=== PATIENT | female | born 1950 | race Caucasian/White ===

== ENCOUNTER 2018-11-03 15:55 | Inpatient (IN) ==
[2018-11-03] MEDS ORDERED: 0.9 % SODIUM CHLORIDE 1,000 ML IV ONE (16:03)
[2018-11-03] MEDS ORDERED: DIPH,PERTUSS(ACELL),TET VAC/PF 0.5 ML SYRINGE IM ONE (16:05)
--- NOTE | 2018-11-03 16:08 | Emergency Department Note ---
Lower Extremity Injury HPI - General Chief Complaint: Extremity Injury, Lower Stated Complaint: poss open fracture Time Seen by Provider: 11/03/18 16:05 Source: EMS Mode of arrival: EMS Limitations: no limitations - History of Present Illness HPI Narrative: Patient states she fell in the kitchen at her home just prior to coming into the ED. She believes she tripped on some she has some swelling and tenderness and some deformity noted in the mid tib-fib region and there is a small open wound near the area. She states she is not allergic to any pain medications. She has normal sensation distally and good capillary refill.She rates the pain is a 1 0/10 she has no other signs or symptoms there was no head injury involved no loss of consciousness no neck pain. Denies any other pain in other locations.She states she last ate at 11:00 AM patient states she had about 3 glasses of wine a day and 3 to 4 glasses of wine yesterday - Related Data Home Medications Medication Instructions Recorded Confirmed albuterol sulfate HFA 90 90 mcg INHALATION ONCE PRN g 01/18/16 10/08/18 mcg/actuation aerosol inhaler budesonide-formoterol HFA 160 2 inh INHALATION QDAY g 01/18/16 10/08/18 mcg-4.5 mcg/actuation aerosol inhaler ibuprofen 200 mg tablet 200 mg PO QID PRN tab 01/18/16 10/08/18 tiotropium bromide 18 mcg capsule 1 cap INHALATION QDAY 01/18/16 10/08/18 with inhalation device folic acid 800 mcg tablet 800 mcg PO QDAY 06/28/17 10/08/18 Methocarbamol [Robaxin] 500 mg PO DAILY 04/05/18 10/08/18 Previous Rx's Medication Instructions Recorded atorvastatin 80 mg tablet 80 mg PO QDAY #90 tab 01/20/16 spironolactone 25 mg tablet 12.5 mg PO QDAY #30 tab 04/04/18 trazodone 100 mg tablet 100 mg PO QHS PRN #90 tab 04/10/18 levothyroxine 50 mcg capsule 50 mcg PO QDAY #90 cap 06/24/18 furosemide 20 mg tablet 20 mg PO QDAY PRN #90 tab 09/11/18 Allergies Allergy/AdvReac Type Severity Reaction Status Date / Time Penicillins Allergy Unknown Unknown Verified 11/03/18 15:59 Sulfa (Sulfonamide Allergy Unknown Unknown Verified 11/03/18 15:59 Antibiotics) Review of Systems All systems ED: reviewed and negative except as stated. Musculoskeletal: Reports: as per HPI, other (Pain in the lower left leg some deformity and open laceration) Past Medical History - Past Medical History [facility] Narrative: All Active Problems (Last Reviewed 10/08/18 @ 14:17 by Bonny Clark DO) Papanicolaou smear (Chronic) Rotator cuff (capsule) sprain (Acute) Anemia (Chronic) Edema (Acute) Elevated liver enzymes (Acute) Hip pain, bilateral (Chronic) Shoulder pain, right (Acute) Low grade squamous intraepith lesion on cytologic smear cervix (lgsil) (Acute) Chronic obstructive bronchitis (Chronic) Back pain (Chronic) Thyroid disease (Chronic) Osteoporosis (Chronic) Joint pain (Chronic) Insomnia (Chronic) Hyperlipidemia (Chronic) Muscle pain (Chronic) Asthma (Chronic) Arthritis (Chronic) Acid reflux (Chronic) Past Surgical History (Last Updated 10/08/18 @ 14:27 by Bonny Clark DO) H/O colonoscopy (Chronic) History of cataract surgery (Chronic) Family History (Last Reviewed 10/08/18 @ 14:17 by Bonny Clark DO) Mother Colon cancer Medical history: Reports: non-contributory [employer] history: Reports: non-contributory Surgical history ED: Reports: non-contributory - Social History smoking status: Former smoker Alcohol use: Reports: Daily (She states she 3 drinks between 3 to 4 glasses of wine a day) Drug use: Reports: none Physical Exam Limitations: no limitations General appearance: alert Head: atraumatic, normocephalic Eye: Present: normal appearance, PERRL ENT: normal exam, normal oropharynx, mucous membranes moist Neck: Present: normal inspection, full ROM, trachea midline Chest: Present: normal inspection, symmetric chest wall rise. Absent: tenderness Respiratory: Present: normal lung sounds bilaterally. Absent: respiratory distress, rales/crackles, wheezes Cardiovascular: Present: regular rate, normal rhythm. Absent: bradycardia Abdominal: Present: soft Hip/Pelvis: Present: normal inspection, full ROM. Absent: tenderness Upper leg: Present: normal inspection, full ROM. Absent: tenderness Knee: Present: normal inspection, full ROM. Absent: tenderness Lower leg: Present: tenderness, laceration, deformity Ankle: Present: normal inspection, full ROM. Absent: tenderness Foot/toe: Present: normal inspection, full ROM. Absent: tenderness Neurovascular/Tendon: Present: normal capillary refill, pulse deficit. Absent: motor deficit, sensory deficit, tendon deficit Course Vital Signs Pulse Rate 89 11/03/18 16:09 Respiratory Rate 12 11/03/18 16:09 Blood Pressure 150/63 11/03/18 16:09 Pulse Oximetry (%) 98 11/03/18 16:09 Pulse Rate 98 H 11/03/18 17:03 Respiratory Rate 13 11/03/18 17:03 Blood Pressure 120/68 11/03/18 17:02 Pulse Oximetry (%) 94 11/03/18 17:02 Extremity Injury, Lower - MDM Narrative Medical decision making narrative: X-ray does reveal spiral fracture of the tibia fracture of the medial malleolus fracture of the proximal fibula area Dr. Mathur contacted patient be admitted started on 2 g of Ancef and a CT of the ankle. Patient states she does not know what allergies she had to penicillin as it was in childhood but she states she has had cephalosporins in the past without reaction. Dr. Mathur here to evaluate patient patient will be taken to surgery for her open fracture and he is in contact with Dr. Moore. Dr. Mathur and Dr. Pink have been notified that the patient has had alcohol on board. - Lab Data Result diagrams: 11/03/18 16:33 11/03/18 16:33 Disposition Pt seen by CLINICAL SAFETY MANAGER/PA only: No Clinical Impression: Tibia/fibula fracture Qualifiers: Encounter type: initial encounter Fracture type: open Laterality: left Fracture of ankle, medial malleolus, left, closed Qualifiers: Encounter type: initial encounter Fracture alignment: nondisplaced Qualified Code(s): S82.55XA - Nondisplaced fracture of medial malleolus of left tibia, initial encounter for closed fracture Disposition: Xfer As Inpt ([facility]) Condition: Fair Referrals: Bonny Clark DO [Primary Care Provider] -
[2018-11-03] MEDS: HYDROmorphone 2 MG/ML VIAL IV PRN ×2 (16:09→16:45)
[2018-11-03] MEDS ORDERED: ceFAZolin 2 GM in DEXTROSE 5% IN WATER 50 ML IV SCH ×2 (16:45→22:52)
[2018-11-03 17:39] LABS: Basophils # (Auto) 0.1 K/mcL (0.0-0.3); Eosinophils # (Auto) 0 K/mcL (0.0-0.7); Eosinophils % (Auto) 0.6 % (0.0-7.0); Granulocytes % (Auto) 65.9 % (38.0-78.0); Hematocrit 26.6 % (36.0-48.0); Hemoglobin 8.1 g/dL (12.0-15.0); Lymphocytes # (Auto) 1.9 K/mcL (1.5-4.8); Lymphocytes % (Auto) 24.3 % (15.5-49.0); Mean Corpuscular HGB Conc 30.5 g/dL (31.0-36.0); Mean Platelet Volume 7.7 fL (7.4-10.4); Monocytes # (Auto) 0.6 K/mcL (0.1-0.9); Monocytes % (Auto) 8.2 % (1.0-12.0); Platelet Count 491 K/mcL (140-440); RBC 3.25 M/mcL (4.00-5.20); Red Cell Distribution Width 18.7 % (11.5-14.5); WBC 7.7 K/mcL (4.5-11.0)
[2018-11-03] MEDS ORDERED: ONDANSETRON 4 MG/2 ML VIAL IV ONE ×2 (17:44→19:00)
[2018-11-03 17:46] LABS: Alcohol,Blood 0.103 gm/dl (<0.010)
[2018-11-03 17:51] LABS: ALT/SGPT 29 U/l (0-40); AST/SGOT 38 U/l (0-37); Albumin 3.7 gm/dL (3.2-5.2); Alkaline Phosphatase 227 U/L (39-117); Bilirubin,Total 0.2 mg/dL (0.0-1.0); Blood Urea Nitrogen 7 mg/dl (8-23); Calcium 8.6 mg/dl (8.6-10.4); Carbon Dioxide 23 mmol/L (22-30); Chloride 96 mmol/L (96-108); Globulin 3.7 gm/dL (2.2-3.7); Glomerular Filtration Rate 94; Glucose 106 mg/dL (70-105)
[2018-11-03] MEDS ORDERED: IPRATROPIUM/ALBUTEROL 3 ML AMPUL.NEB NEB ONE ×2 (18:13)
[2018-11-03] MEDS ORDERED: ONDANSETRON 4 MG/2 ML VIAL ONE ×2 (18:29→23:00)
--- NOTE | 2018-11-03 18:32 | Internal Med History&Physical ---
Medical - H&P: [facility] Patient information: Note initiated : 11/03/18 at 6:30 pm Service Date, if different from initiated Date: [] Patient: Bert Villar a 67 y/o F admitted on for poss open fracture. Chief Complaint: [] History of present illness: Ms. Villar is a 67 year old F with history of COPD on home oxygen 3 L, heavy alcoholic presents to the emergency room after a fall and pain in the left leg. The patient drinks since morning, I believe she is had 5 drinks so far lasting at 2 PM. A bit later she notes that she fell down mechanical fall lost strength in her body became a bit dizzy and fell down she is unable to characterize the exact mechanism of the fall or on when she fell but when she tried to get up her left leg was hurting very badly. Severe pain nonradiating, worse with activity better with rest and some pain meds. The patient denies any chest pain shortness of breath cough denies any headache changes in vision difficulty in swallowing no nausea vomiting diarrhea no urinary complaints besides the pain noted she denies any pain anywhere else. Denies any head injury. Patient has an open wound in the left lower extremity, x-ray shows a distal tibia fracture, she also has a proximal fibula fracture. The patient has been evaluated by orthopedics and will be taken today to the OR. Patient is being admitted to the medical service given the fact that she is a chronic alcoholic high risk of withdrawal, is on chronic oxygen therapy from her COPD. All systems: reviewed and no additional remarkable complaints except as stated (As per HPI rest negative) Medical - H&P: PMH Medical history: Medical History (Last Reviewed 10/08/18 @ 14:17 by Bonny Clark DO) Rotator cuff (capsule) sprain (Acute) Anemia (Chronic) Edema (Acute) Elevated liver enzymes (Acute) Hip pain, bilateral (Chronic) Shoulder pain, right (Acute) Low grade squamous intraepith lesion on cytologic smear cervix (lgsil) (Acute) Back pain (Chronic) Thyroid disease (Chronic) Osteoporosis (Chronic) Joint pain (Chronic) Insomnia (Chronic) Hyperlipidemia (Chronic) Muscle pain (Chronic) Asthma (Chronic) Arthritis (Chronic) Acid reflux (Chronic) Surgical history: Past Surgical History (Last Updated 10/08/18 @ 14:27 by Bonny Clark DO) H/O colonoscopy (Chronic) History of cataract surgery (Chronic) Pertinent family history: Family History (Last Reviewed 10/08/18 @ 14:17 by Bonny Clark DO) Mother Colon cancer Medical - H&P: Meds Home Medications Medication Instructions Recorded Confirmed Type albuterol sulfate HFA 90 90 mcg INHALATION ONCE PRN g 01/18/16 10/08/18 History mcg/actuation aerosol inhaler budesonide-formoterol HFA 160 2 inh INHALATION QDAY g 01/18/16 10/08/18 History mcg-4.5 mcg/actuation aerosol inhaler ibuprofen 200 mg tablet 200 mg PO QID PRN tab 01/18/16 10/08/18 History tiotropium bromide 18 mcg capsule 1 cap INHALATION QDAY 01/18/16 10/08/18 History with inhalation device atorvastatin 80 mg tablet 80 mg PO QDAY #90 tab 01/20/16 10/08/18 Rx folic acid 800 mcg tablet 800 mcg PO QDAY 06/28/17 10/08/18 History spironolactone 25 mg tablet 12.5 mg PO QDAY #30 tab 04/04/18 10/08/18 Rx Methocarbamol [Robaxin] 500 mg PO DAILY 04/05/18 10/08/18 History trazodone 100 mg tablet 100 mg PO QHS PRN #90 tab 04/10/18 10/08/18 Rx levothyroxine 50 mcg capsule 50 mcg PO QDAY #90 cap 06/24/18 10/08/18 Rx furosemide 20 mg tablet 20 mg PO QDAY PRN #90 tab 09/11/18 10/08/18 Rx Allergies Allergy/AdvReac Type Severity Reaction Status Date / Time Penicillins Allergy Unknown Unknown Verified 11/03/18 15:59 Sulfa (Sulfonamide Allergy Unknown Unknown Verified 11/03/18 15:59 Antibiotics) Medical - H&P: Exam - Constitutional Vitals: Pulse Resp BP Pulse Ox 95 H 13 120/68 98 11/03/18 17:12 11/03/18 17:12 11/03/18 17:02 11/03/18 17:12 General appearance: moderate distress Exam: GENERAL: The patient is a well-developed, well-nourished in no apparent distress. Is alert and oriented x3 but appears to be under the influence of alcohol VITAL SIGNS: Reviewed and as noted elsewhere. HEENT: Head is normocephalic and atraumatic. Extraocular muscles are intact. Pupils are equal, round, and reactive to light. Nares appeared normal. Mouth appears any without lesions. Mucous membranes are moist. NECK: Normal to inspection, Supple, No lymphadenopathy or thyromegaly. LUNGS: Air entry equal on both sides decreased air entry bilaterally,, no wheezing, crackles or rhonchi noted. No accessory muscles of respiration HEART: Regular rate and rhythm normal, S1 and S2 heard, no Gallop, S3 or Rub Noted, No Gross murmur heard. ABDOMEN: Soft, nontender, and nondistended. Positive bowel sounds. No hepatosplenomegaly was noted. EXTREMITIES: No cyanosis, clubbing, rash, lesions or edema. Open wound on the anterior aspect of the left lower extremity, covered in dressing NEUROLOGIC: Cranial nerves II through XII are grossly intact. Motor and Sensory System Grossly Intact PSYCHIATRIC: Patient is intoxicated, and has received some pain meds SKIN: No ulceration or wounds noted, No jaundice, No rash noted. Medical - H&P: Reslt - Labs CBC & Chem 7: 11/03/18 16:33 11/03/18 16:33 Labs: Short CBC 11/03/18 Range/Units 16:33 WBC 7.7 (4.5-11.0) K/mcL Hgb 8.1 L (12.0-15.0) g/dL Hct 26.6 L (36.0-48.0) % Plt Count 491 H (140-440) K/mcL BMP 11/03/18 16:33 Sodium 135 Potassium 4.7 Chloride 96 Carbon Dioxide 23 BUN 7 L Creatinine 0.6 Glucose 106 H Calcium 8.6 Liver Function 11/03/18 Range/Units 16:33 Total Bilirubin 0.2 (0.0-1.0) mg/dL AST 38 H (0-37) U/l ALT 29 (0-40) U/l Alkaline Phosphatase 227 H (39-117) U/L Albumin 3.7 (3.2-5.2) gm/dL Medical - H&P: A/P - Narrative A/P Narrative: A/P Open Tibia Fracture -OR today -Management per ortho Pre Op eval -RCRI score is 0, but pt high risk given emergent nature, copd, on oxygen and intoxicated with chr anemia -no modifiable risk present, -CXR shows copd, EKG sinus tachy, COPD, on Home oxygen 3 L Chronic Respiratory Failure -Duonebs q6hrs for now -resume home inhaler regime Anemia -chr, stable, 8.1, follows outpatient with PCP, on iron supplements Alcohol intoxication -not sure if wishes to quit -IV thiamine, for now -wine with meals to avoid withdrawal DVT hep sq Diet regular, (post op) Full code Social History - Social History marital status: single other: Children-3 - Tobacco smoking status: Former smoker - Tobacco Type tobacco type: cigarettes - Alcohol alcohol intake frequency: 2+ drinks per day - Substance use substance use type: does not use
[2018-11-03] MEDS ORDERED: LIDOCAINE HCL/PF 100 MG/5 ML SYRINGE IV ONE (19:00)
[2018-11-03] MEDS ORDERED: PROPOFOL 200 MG/20 ML VIAL IV ONE (19:00)
[2018-11-03] MEDS ORDERED: GLYCOPYRROLATE 0.2 MG/ML VIAL IV ONE (19:00)
[2018-11-03] MEDS ORDERED: fentaNYL 100 MCG/2 ML VIAL IV ONE (19:00)
[2018-11-03] MEDS ORDERED: PHENYLEPHRINE 10 MG/ML VIAL IV ONE (19:00)
[2018-11-03] MEDS ORDERED: MIDAZOLAM 2 MG/2 ML VIAL IV ONE (19:00)
[2018-11-03] MEDS ORDERED: KETAMINE 100 MG/ML ML IV ONE (19:00)
[2018-11-03] MEDS ORDERED: METOPROLOL TARTRATE 5 MG/5 ML VIAL IV ONE (19:00)
--- NOTE | 2018-11-03 19:07 | XRay Report ---
CLINICAL INFORMATION: CHEST PAIN COMPARISON: 10/03/2011 FINDINGS: Heart is accentuated by lordotic positioning rotation and AP technique and is within normal limits. Mediastinum and pulmonary vessels are normal for technique. Moderate centrilobular emphysema changes demonstrate long-term stability. No infiltrates or effusions. Partially calcified bilateral breast implants again noted IMPRESSION: Moderate COPD. No acute disease Interpreted and Authenticated by: Ab Nunes 11/03/18
--- NOTE | 2018-11-03 19:08 | XRay Report ---
CLINICAL INFORMATION: Trauma - fall COMPARISON: Pelvic CT 01/17/2018 FINDINGS: Downward tilt of left hemipelvis again noted. Sacroiliac and hip joints are normal in width and alignment without arthritic change. There is no fracture or osseous abnormality. Soft tissues are unremarkable. IMPRESSION: Normal exam. Interpreted and Authenticated by: Ab Nunes 11/03/18
--- NOTE | 2018-11-03 19:16 | XRay Report ---
CLINICAL INFORMATION: fall, poss open fx COMPARISON: None. FINDINGS: Obliquely fracture of the proximal fibular diaphysis shows the distal fragment displaced one shaft width in a lateral direction. There is a spiral fracture of the distal tibial diaphysis. The distal fragment displaced 5 mm medially and posteriorly. A third hairline coronal oriented fracture extends through the distal tibial metaphysis into the plafond involves both posterior and medial malleolus. The patellofemoral, tibiofemoral, and ankle mortise joints are normal with and alignment. IMPRESSION: 1. Minimally displaced spiral fracture distal tibial diaphysis 2. Nondisplaced hairline fracture distal tibial metaphysis with extension to tibial plafond both posterior and medial malleolar involvement. 3. Obliquely oriented, mildly displaced fracture of the proximal fibular diaphysis Interpreted and Authenticated by: Ab Nunes 11/03/18
--- NOTE | 2018-11-03 19:50 | Cat Scan Report ---
CLINICAL INFORMATION: fracture COMPARISON: Plain films 11/03/2018 TECHNIQUE: 0.65 and helical slices were obtained from the mid tibia and fibula through the MTP regions. Following reconstruction, 2.5 or axial sagittal coronal reformatted or processed and reviewed in bone and soft tissue windows.. FINDINGS: The most proximal fibular fracture, known from plain film, is not included on the CT. An oblique fracture through the mid tibial diaphysis demonstrate 5 mm medial and posterior displacement appreciated. There is mild diffuse edema There is a hairline spiral fracture through the distal tibial diaphysis extending into the posterior metaphysis extending to the posterior and medial malleoli exiting through the tibial plafond. The ankle mortise is grossly The ankle mortise, all joints of the hindfoot and visualized midfoot are normal in width and alignment without arthritic change. Mild diffuse soft tissue edema appreciated IMPRESSION: 1. Oblique fracture through the distal one third of the tibial diaphysis distal fragment is displaced 5 mm posteriorly and medially. 2. Spiral hairline fracture through the posterior tibial metaphysis which winds into the posterior and medial malleolus exiting the tibial plafond. No displacement. Interpreted and Authenticated by: Ab Nunes 11/03/18
[2018-11-03] MEDS ORDERED: VANCOMYCIN 1 GM VIAL TOPICAL ONE (20:45)
[2018-11-03] MEDS ORDERED: VANCOMYCIN 1 GM VIAL TOPICAL SCH (20:45)
[2018-11-03] MEDS ORDERED: LIDOCAINE 1% 20 ML, BUPIVACAINE 0.5% 20 ML SQ ONE (20:50)
[2018-11-03] MEDS ORDERED: IPRATROPIUM/ALBUTEROL 3 ML AMPUL.NEB NEB PRN ×2 (21:15→22:52)
--- NOTE | 2018-11-03 21:50 | Brief Operative Note ---
Date of procedure: 11/03/18 Pre-op diagnosis: left open tib/fib fracture, posterior malleolus fracture Post-op diagnosis: same Procedure: Irrigation and debridement of left open tibia fracture with fixation with IM nail, open treatment posterior malleolus fracture, closed treatment proximal fibula fracture Grafts/Implants: Yes (supa T2 tibial nail [id number], 4-0 cannulated screw A to P and 2-0 synthes ) Anesthesia: GLMA Findings: open fracture of the tibial, no gross contamination, periosteal stripping surrounding fracture Complications: none Surgeon: Leticia Mathur Glove Turner And Former Automatic: Tito Meier Estimated blood loss (cc): 50 Tourniquet Time (Minutes): 77 Specimens Removed/Pathology: none sent Condition: stable Disposition: PACU
[2018-11-03 22:19] LABS: POC Blood Urea Nitrogen 6 mg/dl (8-23); POC CO2 29 mmol/L (22-30); POC Calcium, Ionized 1.07 mmol/L (1.16-1.32); POC Chloride 99 mmol/L (96-108); POC Creatinine 0.8 mg/dl (0.6-1.1); POC Glucose, Random 120 mg/dL (70-105); POC Potassium 5.8 mmol/L (3.3-5.1); POC Sodium 133 mmol/L (133-145)
--- NOTE | 2018-11-03 22:42 | Consultation ---
DATE OF CONSULTATION: 11/03/2018 REASON FOR CONSULTATION: Open left tib-fib fracture. CONSULTING PROVIDER: Dr. Chris Edwards, ER provider [facility] CHIEF COMPLAINT: Pain, deformity, and laceration of left leg. HISTORY OF PRESENT ILLNESS: The patient is a 67-year-old female with oxygen dependent COPD at home who was drinking this afternoon and reports that she fell, does not remember the exact mechanism of the fall, with inability to ambulate thereafter. She was brought to the Emergency Department, underwent evaluation, found to have a tib-fib fracture of the left lower extremity. Upon presentation, she does also complain about some chronic pain since she had a fall approximately a week prior to this as well. Otherwise no recent change in her overall health status. She denies chest pain, shortness of breath at this time outside of her baseline. PAST MEDICAL HISTORY: She has COPD, dependent on 3 liters of oxygen all the time, alcoholism, chronic low back pain, thyroid disease, osteoporosis. PAST SURGICAL HISTORY: History of colonoscopy and cataract surgery. ALLERGIES: PENICILLINS AND SULFA. MEDICATIONS: Albuterol inhaler, ibuprofen, tiotropium bromide capsule with inhalation, folic acid, muscle relaxer. SOCIAL HISTORY: She resides I believe with her son. She does drink on a daily basis, 3 to 4 glasses of wine. She is a former smoker, but none currently. REVIEW OF SYSTEMS: A 10-point review is negative, otherwise as mentioned above. PHYSICAL EXAMINATION: GENERAL: The patient is somewhat in distress, but she does communicate. VITAL SIGNS: Her pulse is 98, respiratory rate is 13, blood pressure is 120/68, and she is saturating 94% on 3 liters. HEENT: Head appears atraumatic. She is tearful. EXTREMITIES: Bilateral upper extremities, she does have a bruise on the right arm on the medial aspect but has full active range of motion of shoulder, elbow, wrist, and hand. She can make a composite fist with that hand. Sensation is intact throughout, and her hand is warm and well perfused. In her pelvis, she does have some tenderness about the left hip but it is stable. She does not have any pain with log roll of her hip on either side. She has a splint intact on the left lower extremity. This was loosen and she has a laceration approximately 1.5 cm at the level of the fracture over the anterior aspect. Otherwise compartments are soft. Her sensation is intact throughout the foot along with being warm and well perfused. She has no tenderness about the thigh or the knee area. Examination of right lower extremity is atraumatic. She can log roll without pain, flex and extend the knee without pain. There is no tenderness throughout the extremity, and she has a warm and well perfused foot with sensation being intact. IMAGING: She has plain films of her left tib-fib which demonstrate a spiral fracture, midshaft to distal one-third along with a proximal fibular fracture. It also appears to have a spiral component along the posterior cortex and extends to the medial malleolus which is intra-articular. She does have a CT of the ankle as well which demonstrates a nondisplaced fracture of the posterior malleolus that is a single fragment and extends to the medial malleolus. The posterior fracture aligned from the spiral component inferiorly. She has plain films of her pelvis as well which do not demonstrate any fractures about the pelvis or the femoral neck. labs pending; ASSESSMENT AND PLAN: The patient is a 67-year-old female with COPD, requiring 3 liters oxygen along with alcoholism with an open left tib-fib fracture. I discussed the diagnosis with her as well as her sister. My recommendation is for irrigation and debridement of fracture along with operative fixation. I discussed this with her as this will improve her overall outcome. She does have increased risk of infection and nonunion as she does use steroids for her COPD and alcoholism, which does impede healing capacity as well. However, I think it is still worth the risk moving forward, and she understands this. Plan will be for irrigation and debridement of left tibia fracture and open treatment of fibular fracture with operative treatment of the tibia with intramedullary nail and independent screw fixation of the articular component. SARI:braulio Job ID: [id number] Doc ID: [id number] Leticia MATHEWS
[2018-11-03] MEDS ORDERED: fentaNYL 100 MCG/2 ML VIAL IV PRN (22:52)
[2018-11-03] MEDS ORDERED: HYDROcodone/APAP 5/325MG TABLET PO PRN (22:52)
[2018-11-03] MEDS ORDERED: DEXTROSE 5%-1/2NS 1,000 ML IV SCH (22:52)
[2018-11-03] MEDS ORDERED: SENNOSIDES 1 TABLET PO SCH (22:52)
[2018-11-03] MEDS ORDERED: METHOCARBAMOL 1,000 MG/10 ML VIAL IV PRN (22:52)
[2018-11-03] MEDS ORDERED: oxyCODONE HCL 5 MG TABLET PO PRN (22:52)
[2018-11-03] MEDS ORDERED: METOPROLOL TARTRATE 5 MG/5 ML VIAL IV PRN (22:52)
[2018-11-03] MEDS ORDERED: ALBUTEROL SULFATE 2.5 MG/3 ML NEBULIZER NEB PRN (22:52)
[2018-11-03] MEDS ORDERED: LACTATED RINGERS 1,000 ML IV SCH (22:52)
[2018-11-03] MEDS ORDERED: HYDROmorphone 2 MG/ML VIAL IV PRN ×2 (22:52)
[2018-11-03] MEDS ORDERED: ONDANSETRON 4 MG/2 ML VIAL IV PRN ×2 (22:52)
[2018-11-03] MEDS ORDERED: HEPARIN 5,000 UNIT/ML VIAL SQ SCH (22:52)
[2018-11-03] MEDS ORDERED: MEPERIDINE 25 MG/ML SYRINGE IV PRN (22:52)
[2018-11-03] MEDS ORDERED: ePHEDrine 50 MG/ML AMPUL IV PRN (22:52)
[2018-11-03] MEDS ORDERED: ACETAMINOPHEN 325 MG TABLET PO PRN (22:52)
[2018-11-03] MEDS ORDERED: THIAMINE 100 MG in 0.9 % SODIUM CHLORIDE 50 ML IV ONE (22:52)
[2018-11-03] MEDS ORDERED: NALOXONE HCL 0.4 MG/ML VIAL IV PRN (22:52)
[2018-11-03] MEDS ORDERED: HYDROmorphone 2 MG/ML VIAL ONE (22:59)
[2018-11-03] MEDS: IPRATROPIUM/ALBUTEROL 3 ML AMPUL.NEB NEB SCH (23:25)
[2018-11-04] MEDS: 0.9 % SODIUM CHLORIDE 10 ML SYRINGE IV SCH ×2 (00:03→04:36)
[2018-11-04] MEDS ORDERED: ceFAZolin 1 GM VIAL ONE (01:31)
[2018-11-04] MEDS ORDERED: IPRATROPIUM/ALBUTEROL 3 ML AMPUL.NEB NEB ONE (01:32)
[2018-11-04] MEDS: ceFAZolin 1 GM VIAL IV SCH ×2 (01:44→07:22)
[2018-11-04] MEDS: IPRATROPIUM/ALBUTEROL 3 ML AMPUL.NEB NEB SCH ×2 (01:45→06:56)
[2018-11-04] MEDS ORDERED: HYDROmorphone 2 MG/ML VIAL ONE ×2 (01:48→03:42)
[2018-11-04] MEDS ORDERED: HYDROmorphone 2 MG/ML VIAL IV PRN (07:08)
[2018-11-04] MEDS ORDERED: oxyCODONE HCL 5 MG TABLET PO PRN (07:08)
--- NOTE | 2018-11-04 07:13 | Orthopedic Progress Note ---
Subjective Patient information: Note initiated : 11/04/18 at 7:10 am Service Date, if different from initiated Date: [] Patient: Bert Villar 67 y/o F admitted on 11/03/18 for poss open fracture. Chief Complaint: [] Principal diagnosis: Left open tib/fib fracture Interval history: No acute events overnight, does have fair amount of pain in leg but pain meds do relieve her pain. Unable to void this AM. No chest pain/shortness of breath. Objective Vital signs: Vital Signs Temp Pulse Pulse Resp BP BP Pulse Ox 11/04/18 06:58 89 18 90 11/04/18 06:57 89 18 11/04/18 06:36 98.6 F 93 H 20 98/50 97 11/04/18 03:32 98.2 F 92 H 16 98/60 97 11/04/18 01:30 81 109/59 98 11/04/18 01:00 77 108/56 97 11/04/18 00:30 78 106/62 98 11/04/18 00:00 98.2 F 79 16 97/58 97 11/03/18 23:45 82 16 98/55 97 11/03/18 23:30 82 16 93/53 90 11/03/18 23:15 97.6 F 85 16 90/51 92 11/03/18 22:53 93 11/03/18 22:43 97.2 F 74 12 103/48 100 11/03/18 22:34 73 13 113/53 100 11/03/18 22:29 81 12 108/59 98 11/03/18 22:24 81 12 114/58 94 11/03/18 22:19 83 12 106/63 96 11/03/18 22:14 84 12 106/63 96 11/03/18 22:09 85 13 119/49 100 11/03/18 22:04 85 17 109/54 100 11/03/18 21:59 97.5 F 80 16 109/55 98 11/03/18 18:31 160/70 11/03/18 17:12 95 H 13 98 11/03/18 17:03 98 H 13 11/03/18 17:02 93 H 17 120/68 94 11/03/18 16:46 90 12 142/75 99 11/03/18 16:39 91 H 11 L 132/83 98 11/03/18 16:32 93 H 14 141/67 99 11/03/18 16:17 93 H 16 153/72 90 11/03/18 16:09 89 12 150/63 98 Intake and Output 11/03/18 11/04/18 11/04/18 21:59 05:59 13:59 Intake Total 2750 50 Output Total 70 0 Balance 2680 50 Intake: IV 1050 Sodium Chloride 0.9% 1,000 ml @ 1000 Wide Open IV BOLUS ONE Rx#: [id number] Ancef 2 gm In Dextrose 5% in 50 Water 50 ml @ 100 mls/hr IV PREOP IZABELLA Rx#:[id number] Oral 0 IV - Manual Only 1700 50 Output: Void Amount 0 Estimated Blood Loss 70 Other: Weight 152 lb 170 lb Intake & Output: Intake & Output 11/03/18 11/04/18 11/04/18 21:59 05:59 13:59 Intake Total 2750 50 Output Total 70 0 Balance 2680 50 Weight 152 lb 170 lb Intake: IV 1050 Sodium Chloride 0.9% 1,000 ml @ 1000 Wide Open IV BOLUS ONE Rx#: [id number] Ancef 2 gm In Dextrose 5% in 50 Water 50 ml @ 100 mls/hr IV PREOP IZABELLA Rx#:[id number] Oral 0 IV - Manual Only 1700 50 Output: Void Amount 0 Estimated Blood Loss 70 Incision clean and dry: No (has strikethrough at the level of the fracture through the gilma wrap.) Weight bearing status: partial Range of motion: can fully extend at the knee Additional Comments: compartments soft. sensation is baseline. foot warm well perfused. - Labs CBC & BMP: 11/03/18 16:33 11/03/18 16:33 Labs: 11/03/18 16:33 Hgb 8.1 L Hct 26.6 L Assessment and Plan - Narrative A/P Narrative: POD 1 s/p ORIF medial/posterior malleolus fracture of left tibia, IMN for open tibial shaft fracture, non op for proximal fibula fracture -- PT/OT ----- WB 25% -- Use oral pain medications primarily for the pain rather than IV. IV only for breakthrough not controlled with orals ------ oxycodone, tylenol, muscle relaxant -- prophy: will start lovenox today, ambulation, foot pumps, IS -- Dispo: pending, patient has been falling at home more frequently. See how she does today but may benefit from short term rehab.
[2018-11-04] MEDS ORDERED: METHOCARBAMOL 500 MG TABLET PO PRN (07:16)
--- NOTE | 2018-11-04 07:54 | XRay Report ---
CLINICAL INFORMATION: Post Surgery (ORIF) tibial fractures COMPARISON: Preoperative plain films 11/03/2018 1608 hours. FINDINGS: IM kirt and interlocking screws transfix the oblique fracture through the distal tibial diaphysis. Medial plate and multiple screws transfix the spiral hairline fracture through the distal tibial posterior metaphysis with posterior and medial malleolus extension. All relationships are anatomic. Joint spaces are normal. Oblique fracture of the proximal fibular diaphysis has been reduced to near-anatomic alignment IMPRESSION: ORIF - two separate distal tibial fractures - anatomic alignment Interpreted and Authenticated by: Ab Nunes 11/04/18
--- NOTE | 2018-11-04 07:55 | XRay Report ---
CLINICAL INFORMATION: left tibia fracture orif COMPARISON: None. FINDINGS: Multiple digital images from the OR show oblique fracture of distal tibial diaphysis and upper spiral hairline fracture through the posterior distal tibial metaphysis with posterior and medial malleolar extension to be reduced anatomic alignment and transfixed by orthopedic hardware. Joint spaces are normal IMPRESSION: ORIF two separate distal tibial fractures/anatomically aligned Interpreted and Authenticated by: Ab Nunes 11/04/18
[2018-11-04 08:34] LABS: Appearance,Urine CLEAR; Bacteria,Urine 0 /hpf (0); Bilirubin,Urine NEG (NEG); Color,Urine YELLOW; Culture Indicated,Urine NO; Glucose,Urine (UA) NEGATIVE (NEG); Ketones,Urine NEG (NEG); Leukocyte Esterase,Urine NEG /uL (NEG); Mucus,Urine FEW /hpf (0); Nitrate,Urine NEG (NEG); Protein,Urine NEG (NEG); Specific Gravity,Urine 1.015 (1.000-1.035); Urine Blood NEG mg/dL (<0.03); Urine Hyaline Cast 22 /lpf (0-2); Urine RBC < 1 /hpf (0-1); Urine Squamous Epithelial Cell < 1 /hpf (0-4); Urine WBC < 1 /hpf (0-4); Urobilinogen,Urine NEG (NEG)
[2018-11-04] MEDS ORDERED: THIAMINE 100 MG in 0.9 % SODIUM CHLORIDE 50 ML IV SCH (09:00)
[2018-11-04 09:01] LABS: Hematocrit 23.2 % (36.0-48.0)
--- NOTE | 2018-11-04 09:03 | Operative Note ---
DATE OF OPERATION: 11/03/2018 PREOPERATIVE DIAGNOSIS: Left open tibia, fibula shaft fractures with the posterior malleolus component. POSTOPERATIVE DIAGNOSIS: Left open tibia, fibula shaft fractures with the posterior malleolus component. PROCEDURE: 1. Irrigation and debridement of the open tibia fracture with open reduction and internal fixation of the tibia with intramedullary nail. 2. Open treatment of the posterior malleolar fracture and medial malleolus fracture. 3. Closed treatment of the proximal fibular fracture. SURGEON: Leticia Mathur MD FIRESTOP/CONTAINMENT WORKER: Tito Meier PA-C. The PA's assistance was required for the safe and efficient completion of the entire case. This provider's expertise and technical skill were required throughout the case. The PA assisted with preoperative coordination, intraoperative retraction, wound closure, dressing and splint application, as well as postoperative documentation and care coordination. ANESTHESIA: General via LMA. IV FLUIDS: 1 liter lactated ringer. ESTIMATED BLOOD LOSS: Less than 50 mL TOURNIQUET TIME: 77 minutes at 200 mmHg. IV ANTIBITOICS: 2 grams Ancef. IMPLANTS: Noxon T2 tibial nail 10 x 330 mm with end cap of 10 mm. He had a Synthes 2-0 mini fragment plate for the medial malleolus as well as 4-0 cannulated Noxon screw from A to P for the posterior malleolus. PATHOLOGY TO LAB: None. INTRAOPERATIVE COMPLICATIONS: None apparent. OPERATIVE FINDINGS: She had a 1.5 cm to 2 cm periosteal stripping surrounding the fracture site itself, most notably for the distal fragment was very subcutaneous in nature and a skin flap essentially of the epidermis was from the dermal layer over the fracture site itself. The fracture was easily reducible after irrigating and debriding the fracture hematoma. INDICATIONS: The patient is a 67year-old female who earlier this afternoon fell at home resulting in an open tib-fib fracture. She has several medical problems including COPD requiring home oxygen use as well as a chronic alcoholic with poor protoplasm for healing. We discussed the fracture with her as well as risks of the treatment; however, not fixing the fracture would also lend itself to significant complication, morbidity and mortality associated with those. I think her primary issue is the potential for infection which I discussed with her and she is well versed and willing to proceed with surgery. DESCRIPTION OF PROCEDURE: The patient was met in the preoperative holding area where site was verified and marked with the patient's input. She was then taken back to the operating room where she underwent successful anesthesia via LMA. She was placed supine on the operating room table with a small ipsilateral bump. A padded tourniquet was placed about the proximal thigh. Leg was then cleaned. The contralateral extremity was secured to the table as well and all bony prominences adequately padded. The left lower extremity was then prepped and draped in the usual sterile fashion prepping the open wound with Betadine. Surgical timeout was performed to verify patient's identity, correct procedure be performed, and correct extremity being operated on and everybody was in agreement. At this point, we localized the joint line with the large C-arm placed in A to P screw slightly lateral to medial to capture the posterior malleolar component of the distal articular fragment as I did not want a nail and risk displacing this fragment. This was done with creating a small incision retracting the tendons and vessels over the anterior tibia with retractors under direct visualization. Created an additional incision over the medial malleolus and anterior colliculus where I placed a small 2-0 plate as I do not think a screw would be sufficient given her bone quality and likely would not lend itself as well as this fracture fragment wrapped around posteriorly and proximally. I wanted to capture as much as possible. I bent the inferior portion of it to capture the curved portion of the anterior colliculus and placed a screw along the anterior medial cortex in order to avoid our nail during placement and then placed two additional screws in the superior portion of this; unicortical to avoid any interference with our nail as well. Once these were placed, again large fluoroscopy was utilized to ensure adequate reduction. I was happy with the overall alignment of the fracture itself. At this point, utilizing the translucent triangle I flexed the knee, created an incision over the patella midline. Dissection was taken down to the peritenon. The peritenon flaps were created medial laterally, incised to expose the patellar tendon. Patellar tendon was incised centrally and a Gelpi retractor was placed. The anterior fat pad was elevated up to expose the anterior portion of the tibial plateau; however, I was cautious not to penetrate intraarticularly. At this point, using AP and lateral fluoroscopy, at the medial upslope of the lateral tibial plateau as our landmark on the AP and at the anterior articular margin on the lateral, we placed our guide pin and then utilized a tissue protector, opened the canal with opening reamer. The guide pin was then placed and verified the position and transversed the fracture, both in AP and lateral and then centrally in the joint with the talus on the AP and the lateral. This was impacted in the physeal scar. Subsequently, I reamed over this up to a size 12.5, which had significant cortical chatter. I felt this was adequate. The size was 330 mm; thus elected to proceed with a 10 x 330. The nail was placed in standard fashion ensuring the fracture remained stable throughout. I should have mentioned above, once the posterior medial malleolus were fixed I opened up the fracture site itself, an incision, and extended it to expose the end of the bone. It was curetted and irrigated it copiously with a 2 liter of normal saline and then again at the end with another liter. I placed a bone to clamp [id number] to hold her fracture in a reduced fashion. This was done prior to placing the guide pin, etc. At this point, the nail had been placed. I placed the distal interlocking screws in a perfect tangirnaq fashion as my plate had blocked my most inferior screw. Thus had put A to P under direct visualization and one medial to lateral. Once this was completed, I placed 2 statically locked screws proximally in a cross pattern as well. The clamps had been removed. The fracture was stable and the overall alignment looked anatomic and the fracture was in anatomic alignment overall. All orthogonal views of the tibia were obtained. The wounds were copiously irrigated again. Vancomycin was placed deep in the wound of the tibia as well as over the patellar tendon. The peritenon was closed in layered fashion with 2-0 Vicryl, 3-0 Vicryl and 3-0 nylon in running fashion. The open portion was closed with a subcutaneous suture, 3-0 Vicryl and the skin was closed with a vertical mattress 3-0 nylon. The smaller incisions were all closed in layered fashion as well and skin was closed with 3-0 nylon in a running fashion for the more distal ankle incisions. The leg was then cleaned and dried. Xeroform was placed, fluffs, along with Mitchell wrap and a Cam boot. The patient awoke from anesthesia and transferred to PACU in stable condition. PLAN: The patient will be admitted for for post operative recovery. She doesn't have significant support at home. She may need a halfway facility upon discharge. DLW:marissa Job ID: [id number] Doc ID: [id number] Leticia Mathur MD MTDD
[2018-11-04 09:21] LABS: ALT/SGPT 20 U/l (0-40); AST/SGOT 36 U/l (0-37); Albumin 3.3 gm/dL (3.2-5.2); Albumin/Globulin Ratio 1.1 (1.0-2.3); Alkaline Phosphatase 196 U/L (39-117); Bilirubin,Direct < 0.2 mg/dL (0.0-0.3); Bilirubin,Total 0.3 mg/dL (0.0-1.0); Blood Urea Nitrogen 9 mg/dl (8-23); Calcium 7.9 mg/dl (8.6-10.4); Carbon Dioxide 25 mmol/L (22-30); Chloride 95 mmol/L (96-108); Glomerular Filtration Rate 52; Glucose 150 mg/dL (70-105); Lactate Dehydrogenase 209 U/L (94-250); Phosphorous 3.5 mg/dL (2.7-4.5); Triglycerides 72 mg/dl (<150); Uric Acid 5.8 mg/dL (2.5-8.0)
[2018-11-04] MEDS ORDERED: MAGNESIUM SULFATE 2 GM/50 ML BAG IV ONE (09:24)
[2018-11-04] MEDS ORDERED: 0.9 % SODIUM CHLORIDE 250 ML IV SCH (09:30)
--- NOTE | 2018-11-04 10:18 | Internal Med Progress Note ---
Medical - PN: Subj Patient information: Note initiated : 11/04/18 at 10:16 am Service Date, if different from initiated Date: [] Patient: Bert Villar a 67 y/o F admitted on 11/03/18 for poss open fracture. Chief Complaint: [] Interval history: Ms. Villar is a 67 year old F with history of COPD on home oxygen 3 L, heavy alcoholic presents to the emergency room after a fall and pain in the left leg. The patient drinks since morning, I believe she is had 5 drinks so far lasting at 2 PM. A bit later she notes that she fell down mechanical fall lost strength in her body became a bit dizzy and fell down she is unable to characterize the exact mechanism of the fall or on when she fell but when she tried to get up her left leg was hurting very badly. Severe pain nonradiating, worse with activity better with rest and some pain meds. The patient denies any chest pain shortness of breath cough denies any headache changes in vision difficulty in swallowing no nausea vomiting diarrhea no urinary complaints besides the pain noted she denies any pain anywhere else. Denies any head injury. Patient has an open wound in the left lower extremity, x-ray shows a distal tibia fracture, she also has a proximal fibula fracture. The patient has been evaluated by orthopedics and will be taken today to the OR. Patient is being admitted to the medical service given the fact that she is a chronic alcoholic high risk of withdrawal, is on chronic oxygen therapy from her COPD. 11/04 Patient seen and examined, no acute overnight events. Status post surgery yesterday. Hemoglobin low today at 7 will transfuse 2 units. She still has some pain at the site of surgery otherwise no complaints reported. No evidence of alcohol withdrawal yet, she has been allowed wine with meals Pertinent ROS: Denies headache, dizziness Denies chest pain, palpitations Denies cough or shortness of breath Denies abdominal pain, nausea or vomiting. - Constitutional Vitals: Vital Signs Temp Pulse Resp BP Pulse Ox 98.6 F 89 18 98/50 90 11/04/18 06:36 11/04/18 06:58 11/04/18 06:58 11/04/18 06:36 11/04/18 06:58 Period Temp Pulse Resp BP Sys/Moran Pulse Ox Last 24 Hr 97.2 F-98.6 F 73-98 11-20 90-160/48-83 90-100 Intake and Output 11/03/18 11/04/18 11/04/18 21:59 05:59 13:59 Intake Total 2750 50 Output Total 70 0 310 Balance 2680 50 -310 Weight 152 lb 170 lb Intake & Output: Intake & Output 11/03/18 11/04/18 11/04/18 21:59 05:59 13:59 Intake Total 2750 50 Output Total 70 0 310 Balance 2680 50 -310 Weight 152 lb 170 lb Intake: IV 1050 Sodium Chloride 0.9% 1,000 ml @ 1000 Wide Open IV BOLUS ONE Rx#: [id number] Ancef 2 gm In Dextrose 5% in 50 Water 50 ml @ 100 mls/hr IV PREOP IZABELLA Rx#:[id number] Oral 0 IV - Manual Only 1700 50 Output: Urine Catheter Amount 310 Void Amount 0 Estimated Blood Loss 70 Other: Urine Appearance Clear Straight Clear Urine Color Dark Yellow Straight Dark Yellow Urine Odor Normal Straight Normal Exam: Constitutional; Afebrile, cooperative, alert, not in distress. Respiratory system: Air Entry equal on both sides, No crackles or wheezing, no rhonchi. CVS- Rate rhythm regular, S1,S2 heard, no gallop, no rub. Abdomen- Soft nontender abdomen, no organomegaly, no tenderness, no guarding or rigidity, STABILIZER OPERATOR- AOOx3, moving all extremities, no gross focal deficit noted. Medical - PN: Obj Da - Labs CBC & Chem 7: 11/04/18 07:29 11/04/18 07:29 Labs: Abnormal Lab Results 11/04/18 11/04/18 11/04/18 07:29 07:29 07:24 RBC Hgb 7.0 L* Hct 23.2 L POC Hct MCH MCHC RDW Plt Count POC Potassium Chloride 95 L POC BUN BUN Glucose 150 H POC Glucose Calcium 7.9 L POC WB Ioniz Calcium Magnesium 1.5 L GGT 108 H AST Alkaline Phosphatase 196 H Hyaline Casts 22 H Ethyl Alcohol 11/03/18 11/03/18 11/03/18 22:10 16:33 16:33 RBC Hgb Hct POC Hct 25.0 L MCH MCHC RDW Plt Count POC Potassium 5.8 H Chloride POC BUN 6 L BUN 7 L Glucose 106 H POC Glucose 120 H Calcium POC WB Ioniz Calcium 1.07 L Magnesium GGT AST 38 H Alkaline Phosphatase 227 H Hyaline Casts Ethyl Alcohol 0.103 H 11/03/18 16:33 RBC 3.25 L Hgb 8.1 L Hct 26.6 L POC Hct MCH 25.0 L MCHC 30.5 L RDW 18.7 H Plt Count 491 H POC Potassium Chloride POC BUN BUN Glucose POC Glucose Calcium POC WB Ioniz Calcium Magnesium GGT AST Alkaline Phosphatase Hyaline Casts Ethyl Alcohol Meds: Medications Acetaminophen (Tylenol) 650 mg PO Q6HP PRN PRN Reason: PAIN/FEVER > 101 Albuterol Sulfate (Ventolin) 2.5 mg NEB Q2HP PRN PRN Reason: Shortness Of Breath Albuterol/Ipratropium (Duoneb) 3 ml NEB Q6HRT [facility] Last Admin: 11/04/18 06:56 Dose: 3 ml Documented by: Cefazolin Sodium (Ancef) 1 gm IV Q8H [facility]; Protocol Stop: 11/04/18 14:53 Last Admin: 11/04/18 07:22 Dose: 1 gm Documented by: Enoxaparin Sodium (Lovenox) 40 mg SQ DAILY [facility] Hydromorphone HCl (Dilaudid) 0.5 mg IV Q2HP PRN PRN Reason: PAIN LEVEL > 6 Last Admin: 11/04/18 09:44 Dose: 0.5 mg Documented by: Dextrose/Sodium Chloride (Dextrose 5%-1/2ns Iv Solution) 1,000 mls @ 84 mls/hr IV .[id number] [facility] Last Admin: 11/03/18 23:07 Dose: 84 mls/hr Documented by: Sodium Chloride (Sodium Chloride 0.9%) 250 mls @ 20 mls/hr IV .[id number] [facility] Stop: 11/04/18 21:59 Magnesium Sulfate (Magnesium Sulfate) 2 gm in 50 mls @ 50 mls/hr IV ONCE ONE Stop: 11/04/18 10:23 Methocarbamol (Robaxin) 500 mg PO BIDP PRN PRN Reason: Muscle Spasm Last Admin: 11/04/18 07:34 Dose: 500 mg Documented by: Naloxone HCl (Narcan) 0.1 mg IV Q2MIN PRN PRN Reason: Opiate Reversal Ondansetron HCl (Zofran) 4 mg IV Q6HP PRN PRN Reason: Nausea And Vomiting Oxycodone HCl (Roxicodone) 5 - 10 mg PO Q4HP PRN PRN Reason: PAIN LEVEL 3-6 Last Admin: 11/04/18 07:34 Dose: 10 mg Documented by: Alondra (Raf) 2 tab PO [facility] Last Admin: 11/04/18 01:45 Dose: Not Given Documented by: Sodium Chloride (Saline Flush) 10 ml IV Q8 [facility] Last Admin: 11/04/18 04:36 Dose: Not Given Documented by: Thiamine HCl (Vitamin B1) 100 mg PO [facility] Medical - PN: A/P - Time Spent With Patient Total time spent is greater than 50% in coordination of care (as documented) at patient's floor/unit and/or counseling patient: - Narrative A/P Narrative: A/P Open Tibia Fracture -OR today -Management per ortho COPD, on Home oxygen 3 L Chronic Respiratory Failure -Duonebs q6hrs for now -resume home inhaler regime -no wheezing noted. Anemia of chr disease Acute blood loss anemia -combined anemia -transfuse 2units today Alcohol intoxication -not sure if wishes to quit -switch IV to po thiamine -wine with meals to avoid withdrawal Hypomagnesemia -mg 1.5, likely from chr etoh, replace DVT hep sq Diet regular, (post op) Full code Medical - PN: Qual - VTE Deep Vein Thrombosis/Pulmonary Embolism Present on Admission: No
--- NOTE | 2018-11-04 12:00 | Death Note ---
Discharge Sum: Prov - Provider Patient information: Note initiated : 11/04/18 at 11:53 am Service Date, if different from initiated Date: [] Patient: Bert Villar 67 y/o F admitted on 11/03/18 for poss open fracture. Chief Complaint: [] Primary care physician: Bonny Clark DO Admitting clinician: Jimmy Moore Consults: 11/03/18 Consult to Physician [CONS] Stat Comment: Consulting Provider: Jimmy Moore Reason For Exam: Physician to Consult Consult to Physician [CONS] Stat Comment: Consulting Provider: Leticia Mathur Reason For Exam: Physician to Consult Pronouncing clinician: Jimmy Moore Discharge Sum: Diag - PCOD Cause of : Cardiac arrest Discharge Sum: Summary - Date and Time Date of admission: 11/03/18 22:53 Date of : 11/04/18 Time of : 11:37 - Summary Details: Ms. Villar is a 67 year old F with history of COPD on home oxygen 3 L, heavy alcoholic presents to the emergency room after a fall and pain in the left leg. The patient drinks since morning, I believe she is had 5 drinks so far lasting at 2 PM. A bit later she notes that she fell down mechanical fall lost strength in her body became a bit dizzy and fell down she is unable to characterize the exact mechanism of the fall or on when she fell but when she tried to get up her left leg was hurting very badly. Severe pain nonradiating, worse with activity better with rest and some pain meds. The patient denies any chest pain shortness of breath cough denies any headache changes in vision difficulty in swallowing no nausea vomiting diarrhea no urinary complaints besides the pain noted she denies any pain anywhere else. Denies any head injury. Patient has an open wound in the left lower extremity, x-ray shows a distal tibia fracture, she also has a proximal fibula fracture. The patient has been evaluated by orthopedics and will be taken today to the OR. Patient is being admitted to the medical service given the fact that she is a chronic alcoholic high risk of withdrawal, is on chronic oxygen therapy from her COPD. 11/04 Patient seen and examined, no acute overnight events. Status post surgery yesterday. Hemoglobin low today at 7 will transfuse 2 units. She still has some pain at the site of surgery otherwise no complaints reported. No evidence of alcohol withdrawal yet, she has been allowed wine with meals Code rekha was called for patient being unresponsive, no pulse, no respiration, and not responding to sternal rub as noted by the nurse CPR was initiated immediately, patient had some clear liquid from oral orifice, during cpr which was suctioned CPR was initiated manually, and then via gabby device throughout the code she was in asystole, 4 rounds of epinephrine was given, she received 0.4 of narcan wihtout any response She was on a d5 h0.45ns drip so hypoglycemia was not a concern. Patient did not respond to the resusitative efforts and the code was called off Labs this AM had low Mg at 1.5, but this was replaced, her Hb was 7.0, drop from 8.1 yesterday she does have chr anemia. Family to be updated Cause of Cardiac arrest - Additional Data Confirmation of as documented by pronouncing clinician: no pulse, no respirations, no heart sounds, pupils fixed and dilated Family: attempt made Attending/PCP notified?: Yes Attending physician: Jimmy Moore Was code activated?: Yes Autopsy requested?: No
[2018-11-04] MEDS ORDERED: EPINEPHrine 1 MG/10 ML (1:10,000) SYRINGE IV ONE (12:41)
[2018-11-04] MEDS ORDERED: THIAMINE 100 MG TABLET PO SCH (21:00)
[2018-11-04] MEDS ORDERED: ENOXAPARIN 40 MG/0.4 ML SYRINGE SQ SCH (21:00)
== END 2018-11-04 11:47 | disposition expired | DRG 493 ==
LOC: ED 15:55 → SSSU 18:45 → MEDSUR 22:53
PROVIDERS: ADMIT Internal Medicine; ATTEND Internal Medicine